=== PATIENT | female | born 1980 | race Caucasian/White ===

== ENCOUNTER → 2016-03-04 | Outpatient (CLI) | payer OTHER ==
--- NOTE | 2016-03-05 03:17 | REP ---
Clinical: Growth evaluation . Comparison: 01/15/2016 . Findings: Examination demonstrates a single live intrauterine in cephalic presentation. motion is identified by technologist. Placenta is noted anteriorly and grade to without evidence for placenta previa or abruption. Amniotic fluid volume is normal. Evidence for nuchal cord. Gestational age by LMP 33 weeks 0 days with JANNA 04/22/2016 . Gestational age by current measurements 35 weeks 5 days. FHR equals 136 beats per minute. BPD 9.2 cm 37 weeks 3-day HC 33.7 cm 38 weeks 4 days AC 31.6 cm 35 weeks 4 days FL 6.6 cm 34 weeks 0 days HL 5.7 cm 33 weeks 0 days HC/AC ratio 1.07 Estimated weight 2727 grams ( greater than 97 percentile based on age by LMP and first ultrasound). Amniotic fluid index equals 12.9 cm (8.3 - 24.5) Impression: Single live advanced gestation demonstrating greater than expected growth. Nuchal cord. No obvious abnormalities are identified. Signed by Josh López MD 03/05/2016 03:09 A
== END ==
LOC: M LRY 13:54
PROVIDERS: ATTEND Advanced Practice Midwife
DX: O26.843 Uterine size-date discrepancy, third trimester (principal)

== ENCOUNTER → 2016-03-29 | Outpatient (REF) | payer OTHER | END | disposition home or self-care (01) | LOC: M LAB REF 13:27 | PROVIDERS: ATTEND Advanced Practice Midwife | DX: Z34.83 Encounter for supervision of other normal pregnancy, third trimester (principal); Z36 Encounter for antenatal screening of mother; Z3A.00 Weeks of gestation of pregnancy not specified ==

== ENCOUNTER → 2016-04-17 | Outpatient (CLI) | payer OTHER ==
[~2016-04-17] VITALS: Ht 160 cm; Wt 82.0 kg
[~2016-04-17] MED LIST: CELE20TA PO; COLA100C PO; IBUP800T23 PO; MOM30SS PO; PERCOCET PO; PRENTAB9 PO
[2016-04-17 19:37] VITALS: BP 149/98
== END | disposition home or self-care (01) ==
LOC: M LDO 19:24
PROVIDERS: ATTEND Obstetrics & Gynecology
DX: O26.853 Spotting complicating pregnancy, third trimester (principal); Z3A.39 39 weeks gestation of pregnancy; O99.343 Other mental disorders complicating pregnancy, third trimester; F33.9 Major depressive disorder, recurrent, unspecified

== ENCOUNTER 2016-04-23 14:39 | Inpatient (IN) | payer OTHER ==
[~2016-04-23] VITALS: Ht 160 cm; Wt 81.0 kg
[2016-04-23 15:00] VITALS: BP 124/72
[2016-04-23] MEDS ORDERED: CELE20TA PO (15:05)
[2016-04-23] MEDS ORDERED: PRENTAB9 PO (15:05)
[2016-04-23 16:41] VITALS: BP 130/61
[2016-04-23 17:42] VITALS: BP 130/83
[2016-04-23] MEDS: miSOPROStol 50 MCG 1/2 TAB (S0191) PO SCH ×2 (18:11→22:10)
[2016-04-23 18:25] LABS: MEAN CORPUSCULAR HEMOGLOBIN 30.4 pg (27.0-33.0); MEAN CORPUSCULAR HGB CONC 34.3 g/dl (32.0-36.5); MEAN CORPUSCULAR VOLUME 88.6 fl (80.0-96.0); RED CELL DISTRIBUTION WIDTH 13.7 % (11.5-14.5); WHITE BLOOD COUNT 10.4 K/mm3 (4.0-10.0)
[2016-04-23] MEDS ORDERED: ACETAMINOPHEN 500 MG TAB PO PRN (19:15)
[2016-04-23 19:55] LABS: ALT/SGPT 14 U/L (12-78); AST/SGOT 16 U/L (15-37); BILIRUBIN,TOTAL 0.2 MG/DL (0.2-1.0); CREATININE FOR GFR 0.81 MG/DL (0.55-1.02); GLOMERULAR FILTRATION RATE > 60.0 (>60); URIC ACID 3.3 MG/DL (2.6-6.0)
[2016-04-24] VITALS (18 sets, daily range): BP systolic 121–157; BP diastolic 71–109
[2016-04-24] MEDS ORDERED: LR 1,000 ML IV SCH (01:39)
[2016-04-24] MEDS ORDERED: OXYTOCIN DRIP 30 UNITS in APPROPRIATE DILUENT 1 EA IV SCH (01:45)
--- NOTE | 2016-04-24 01:57 | HPE ---
DATE OF ADMISSION: 04/23/2016 REASON FOR ADMISSION: Induction of labor for gestational hypertension. HISTORY OF PRESENT ILLNESS: Ms. Baer is a 36-year-old 1, who presents at 40 weeks 1 day estimated gestational age by a 7-week ultrasound for induction of labor. She was seen earlier this week in labor and delivery and was assessed for labor at which time she was noted to have an elevated blood pressure. She presented again today at the office with complaints of a sporadic headache and once again had serial blood pressures which were mildly elevated at 140s over 90s. Decision was made to proceed with an induction of labor secondary to gestational hypertension. Her course had otherwise been unremarkable. She initiated care in her first trimester and has been appropriate throughout. PAST MEDICAL HISTORY: None. PAST SURGICAL HISTORY: She has had a cholecystectomy, colonoscopy. PAST OBSTETRICAL HISTORY: She is 1. MEDICATIONS: Include Celexa and vitamins. ALLERGIES: She has no known drug allergies. PHYSICAL EXAMINATION: VITAL SIGNS: Currently stable. She is afebrile. She has a category 1 heart rate tracing. No contractions on tachometer. GENERAL APPEARANCE: Well appearing, no acute distress. LUNGS: Clear to auscultation bilaterally. CARDIOVASCULAR: Heart is regular rate and rhythm. ABDOMEN: Soft, gravid, nontender. Estimated weight (EFW) 3900 grams. CERVICAL EXAMINATION: She was 3 cm dilated, 90% effaced, -2 station. LABORATORIES: Her blood type is O positive. Antibody screen is negative. Rubella is immune. RPR is nonreactive. Hepatitis surface antigen is negative. HIV is negative. Hepatitis C is nonreactive. She initially tested positive for Chlamydia with a negative test of cure. She had a normal 1-hour Glucola. She is group B Streptococcus (GBS) negative. ASSESSMENT: 1. Ms. Baer is a 36-year-old 1 at 40 weeks 1 day estimated gestational age with gestational hypertension. 2. Reassuring status. PLAN: 1. Admit to labor and delivery. CBC, RPR, type and screen. 2. Patient has been thoroughly counseled in regards to her diagnosis, as well as induction of labor. I discussed medication, as well as procedures performed in labor and delivery. She has also been verbally consented for emergency surgery, blood products and anesthesia. After all her questions were answered, patient desires to proceed with admission. 3. Will initiate her induction with 50 mcg of oral misoprostol.
[2016-04-24] MEDS ORDERED: FENTANYL 2MCG/ML ROPIVACAINE 0.2% NACL 250 ML CADD As Ordered ONE (03:52)
[2016-04-24] MEDS ORDERED: LACTATED RINGER'S 1000 ML IV PRN (03:53)
[2016-04-24] MEDS ORDERED: EPIDURAL/PCA KEYS XX PRN (03:53)
[2016-04-24] MEDS ORDERED: ONDANSETRON 4MG/2ML VIAL (J2405) IV PRN ×3 (03:53→14:00)
[2016-04-24] MEDS ORDERED: EPIDURAL COMMENT XX SCH (03:53)
[2016-04-24] MEDS ORDERED: NALOXONE INJ 0.4 MG/1 ML VIAL (J2310) IV PRN ×3 (03:53→11:13)
[2016-04-24] MEDS ORDERED: FENTANYL/ROPIVACAINE/NACL CADD 250 ML EPIDURAL SCH (03:53)
[2016-04-24] MEDS ORDERED: diphenhydrAMINE INJ 50MG/ML VIAL (J1200) IV PRN (03:53)
[2016-04-24] MEDS ORDERED: REFRIGERATOR IV KEYS XX PRN (03:53)
[2016-04-24] MEDS ORDERED: ePHEDrine SULFATE 25 MG/5 ML(5MG/ML) SYRINGE IV PRN (03:53)
[2016-04-24] MEDS ORDERED: ceFAZolin 2 GM/D5W 50 ML IV BAG (J0690) As Ordered ONE (11:03)
[2016-04-24] MEDS ORDERED: BICITRA 30ML SOLN UDC As Ordered ONE (11:03)
[2016-04-24] MEDS ORDERED: NALBUPHINE HCL 10 MG/ML AMP (J2300) IV PRN (11:13)
[2016-04-24] MEDS ORDERED: METOCLOPRAMIDE INJ 10MG/2ML VIAL (J2765) IV PRN (11:13)
[2016-04-24] MEDS ORDERED: BICITRA 30ML SOLN UDC PO ONE (11:15)
[2016-04-24] MEDS ORDERED: OXYTOCIN INJ 10 UNITS/ML VIAL (J2590) As Ordered ONE ×2 (11:22→12:08)
[2016-04-24] MEDS ORDERED: MORPHINE PRES-FREE INJ 10 MG/10 ML VIAL (J2274) As Ordered ONE (11:22)
[2016-04-24] MEDS ORDERED: PHENYLephrine HCL 500 MCG/5 ML (100MCG/ML) SYRINGE (J2370) As Ordered ONE (11:22)
[2016-04-24] MEDS ORDERED: ONDANSETRON 4MG/2ML VIAL (J2405) As Ordered ONE (11:27)
[2016-04-24] MEDS ORDERED: KETOROLAC 60 MG/2 ML VIAL (J1885) As Ordered ONE (11:27)
[2016-04-24 11:34] LABS: CORD GAS ABE A -19.1; CORD GAS HCO3 A 15.3 MEQ/L; CORD GAS O2 SAT A < 15.0 %; CORD GAS PCO2 A 80.1 mmHg; CORD GAS TCO2 A 17.8 MEQ/L
[2016-04-24 11:39] LABS: CORD GAS ABE V -20.6; CORD GAS HCO3 V 11.2 MEQ/L; CORD GAS PCO2 V 49.6 mmHg; CORD GAS PH V 6.971 UNITS; CORD GAS PO2 V 16.3 mmHg; CORD GAS TCO2 V 12.7 MEQ/L
[2016-04-24] MEDS ORDERED: MEPERIDINE 50 MG/ML 1ML VIAL (J2175) As Ordered ONE (11:42)
[2016-04-24] MEDS ORDERED: METOCLOPRAMIDE INJ 10MG/2ML VIAL (J2765) As Ordered ONE (11:43)
[2016-04-24] MEDS ORDERED: MOM 30ML SUSPENSION UDC PO PRN (13:15)
[2016-04-24] MEDS ORDERED: DOCUSATE SODIUM 100 MG CAP PO PRN (13:15)
[2016-04-24] MEDS ORDERED: RHOGAM 300 MCG (1500 IU) INJ (J2790) IM SCH (13:15)
[2016-04-24] MEDS ORDERED: PERCOCET 5MG/325MG TAB PO PRN (13:15)
[2016-04-24] MEDS ORDERED: MEASLES,MUMPS,RUBELLA VACCINE INJ (MMR-II) (90707) SC SCH (13:15)
[2016-04-24] MEDS ORDERED: OXYTOCIN DRIP 30 UNITS in APPROPRIATE DILUENT 1 EA IV ONE (13:30)
[2016-04-24] MEDS ORDERED: IBUP800T23 PO (13:48)
[2016-04-24] MEDS ORDERED: PERCOCET PO (13:49)
[2016-04-24] MEDS ORDERED: fentaNYL 100 MCG/2 ML INJECTION (J3010) IV PRN (14:00)
[2016-04-24] MEDS: PRENATAL VITAMIN TAB PO SCH (16:12)
[2016-04-24] MEDS: LR 1,000 ML IV SCH ×2 (16:13→21:12)
[2016-04-24] MEDS: KETOROLAC 30 MG/ML VIAL (J1885) IV SCH (17:43)
[2016-04-25] MEDS: KETOROLAC 30 MG/ML VIAL (J1885) IV SCH ×3 (00:11→13:13)
[2016-04-25 01:59] VITALS: BP 132/87
[2016-04-25 06:07] LABS: MEAN CORPUSCULAR HEMOGLOBIN 30.6 pg (27.0-33.0); MEAN CORPUSCULAR HGB CONC 32.3 g/dl (32.0-36.5); RED CELL DISTRIBUTION WIDTH 14.2 % (11.5-14.5); WHITE BLOOD COUNT 23.3 K/mm3 (4.0-10.0)
[2016-04-25 06:08] LABS: MEAN CORPUSCULAR VOLUME 94.9 fl (80.0-96.0)
[2016-04-25 06:10] VITALS: BP 147/96
--- NOTE | 2016-04-25 06:33 | RO ---
DATE OF PROCEDURE: 04/24/2016 PREOPERATIVE DIAGNOSES: 1. Nonreassuring heart tracing. 2. Gestational hypertension. POSTOPERATIVE DIAGNOSES: 1. Nonreassuring heart tracing. 2. Gestational hypertension. PROCEDURE PERFORMED: Primary lower transverse section. SURGEON: Coral Jenkins MD ASSISTANTS: True Fairbanks MD ANESTHESIA: Spinal. ESTIMATED BLOOD LOSS: 450 mL. URINE OUTPUT: 75 mL. INTRAVENOUS FLUIDS: 1300 mL of lactated Ringer solution. PREOPERATIVE ANTIBIOTICS: 2 grams of Ancef. SPECIMENS: Cord blood, cord gases and placenta. Cord gas is 6.90, 6.97, with base excess of -19, -20, respectively. INDICATION FOR OPERATION: This patient is a 36-year-old, 1, who presented at 40 weeks and 2 days estimated gestational age for induction of labor secondary gestational hypertension. She initially presented to the office for routine obstetrical (OB) appointment with elevated blood pressures. She reported a mild headache, but otherwise had been asymptomatic and she was sent labor and delivery for labor induction. Her labor progressed unremarkable to the second stage. She began to push and shortly after started to experience repetitive variable decelerations. At which time, I presented to the room where I noticed tachycardia with the heart rate in the 180s with severe variables. Shortly after presenting to the patient's room, I noticed maternal tachycardia with a heart rate in the 160s. At which time, pulse oximetry was placed on the patient and it was observed that the maternal heart rate was being traced instead of . The heart rate was in the 130s with loss of variability and severe variable, decision was made to emergently proceed for a section delivery. DESCRIPTION OF OPERATION: After informed consent was obtained and written consent was reviewed, the patient was brought to the operating room where spinal anesthesia was placed. She was placed in supine position with a left lateral tilt, was emergently prepped and draped. Anesthesia was then tested, deemed to be adequate. A Pfannenstiel skin incision was then made and carried down to the underlying rectus fascia. The fascia was scored and this incision was extended bilaterally. The rectus muscles were in the midline. The peritoneum was then entered bluntly. The vesicouterine peritoneum was tented and excised to create a bladder flap. The bladder blade was placed to retract back the bladder. A curvilinear incision was then made in the lower uterine segment. The head was brought to the level of the incision atraumatically and was delivered, followed by the delivery of shoulders and corpus. Cord was clamped times two and was cut. Infant was taken over to the warmer with Dr. Herrera, neonatology awaited. Cord blood and gases obtained. The placenta was then delivered grossly intact. The uterus was then exteriorized and cleared of all clots and debris. The uterine incision was then closed using two layers of #0 Vicryl, first layer in a running locking fashion, followed by a second layer for imbrication in a running nonlocking fashion. Additional [id number] sutures was placed for hemostasis. The abdomen was then suctioned. The uterine incision inspected and noted to be hemostatic. Uterus was returned to the patient's abdomen, once again inspected and noted to be hemostatic. The anterior peritoneum was then reapproximated with #3-0 Vicryl. The rectus muscles were reapproximated with #3-0 Vicryl. The fascia was then closed using #0 Vicryl in a running nonlocking fashion. The subcutaneous tissue was then irrigated and suctioned. The subcutaneous tissue was reapproximated with #0 Vicryl. Several subdermal stitches were placed with #3-0 Vicryl and the skin was closed with #4-0 Monocryl in a subcuticular fashion. The incision was then cleaned and dry. Mastisol was applied above and below the incision. Steri-Strips were applied over the incision. The incision was then dressed. The patient was then taken to recovery in stable condition. Counts were correct and the couple has decided to name their , Gerald. CHARLEY
[2016-04-25] MEDS: CitaloPRAM (CeleXA) 20 MG TAB PO SCH (08:40)
[2016-04-25] MEDS: PRENATAL VITAMIN TAB PO SCH (08:40)
[2016-04-25] MEDS: PERCOCET 5MG/325MG TAB PO PRN ×3 (08:42→23:38)
[2016-04-25 10:05] VITALS: BP 137/91
[2016-04-25] MEDS: IBUPROFEN 800 MG TAB PO SCH ×2 (13:31→21:14)
[2016-04-25 15:00] VITALS: BP 137/83
[2016-04-25 18:11] VITALS: BP 144/87
[2016-04-25] MEDS ORDERED: IBUPROFEN 800 MG TAB PO SCH (20:00)
[2016-04-25 22:12] VITALS: BP 145/88
[2016-04-26 02:11] VITALS: BP 120/69
[2016-04-26] MEDS: IBUPROFEN 800 MG TAB PO SCH (05:16)
[2016-04-26 05:55] VITALS: BP 120/80
[2016-04-26] MEDS ORDERED: COLA100C PO (07:46)
[2016-04-26] MEDS ORDERED: MOM30SS PO (07:55)
[2016-04-26] MEDS: CitaloPRAM (CeleXA) 20 MG TAB PO SCH (08:10)
[2016-04-26] MEDS: PRENATAL VITAMIN TAB PO SCH (08:10)
--- NOTE | 2016-04-27 13:13 | DSES ---
DATE OF ADMISSION: 04/23/2016 DATE OF DISCHARGE: 04/26/2016 DISCHARGE DIAGNOSES: 1. Gestational hypertension. 2. Emergency primary section for non-reassuring heart tracing. PROCEDURES PERFORMED WHILE IN THE HOSPITAL: 1. Epidural. 2. Spinal anesthesia. 3. Emergency primary section. DISCHARGE CONDITION: Stable. HISTORY AND HOSPITAL COURSE: Mrs. Baer is a 36-year-old 1, initially presented at 40 weeks 1 day for routine OB appointment and was noted to have elevated blood pressures. She continued to be evaluated with repetitive range blood pressures and was sent to labor and delivery for induction of labor. Her labor progressed to the second stage and during the second stage began to have repetitive decelerations, loss of variability and underwent an emergency section for non-reassuring heart tracing. section was uncomplicated. It was productive of a live born male infant. Estimated blood loss was 150 mL. Mrs. Baer did well postoperatively. By postoperative day #2 had met all discharge criteria and was discharged home in stable condition. PHYSICAL EXAM ON DAY OF DISCHARGE: Vital signs stable. She was afebrile. General appearance: Well appearing, no acute distress. Abdomen soft, appropriately tender. Incision was clean, dry and intact, well approximated, not erythremic. Extremities: Negative for calf tenderness. DISCHARGE MEDICATIONS: - ibuprofen - Percocet DISCHARGE INSTRUCTIONS: 1. She will be instructed to remain on pelvic rest for 6 weeks. 2. Report severe pain, heavy vaginal bleeding, fever, persistent headache, incisional issues. 3. Followup in 1 week for blood pressure check and incision check.
== END 2016-04-26 09:35 | disposition home or self-care (01) | DRG 766 ==
LOC: M LDI 14:39 → M OBS 04-24 16:07
PROVIDERS: ADMIT Obstetrics & Gynecology; ATTEND Obstetrics & Gynecology
PROC: 3E0P7GC Introduction of Other Therapeutic Substance into Female Reproductive, Via Natural or Artificial Opening (ICD-10-PCS; 2016-04-23)
PROC: 10D00Z1 Extraction of Products of Conception, Low, Open Approach (ICD-10-PCS; principal; 2016-04-24 11:18)
DX: O13.4 Gestational [pregnancy-induced] hypertension without significant proteinuria, complicating childbirth (principal); Z3A.40 40 weeks gestation of pregnancy; O48.0 Post-term pregnancy; O76 Abnormality in fetal heart rate and rhythm complicating labor and delivery; Z37.0 Single live birth

== ENCOUNTER → 2017-03-31 | Outpatient (REF) | payer OTHER | LOC: M SFHCLERA 16:35 | DX: R35.0 Frequency of micturition (principal) | CPT/HCPCS: 87086 ==

== ENCOUNTER → 2017-09-07 | Outpatient (CLI) | payer OTHER ==
[2017-09-07 11:26] LABS: BASO # 0.1 10^3/uL (0.0-0.2); BASO % 0.8 % (0.0-1.0); EOS # 0.3 10^3/uL (0.0-0.50); EOS % 4.5 % (0.0-3.0); HEMATOCRIT 41.9 % (36.0-47.0); HEMOGLOBIN 13.6 g/dl (12.0-15.5); IMMATURE GRANULOCYTE % 0.5 % (0-3.0); LYMPH # 2.1 10^3/uL (1.5-4.5); LYMPH % 31.3 % (24.0-44.0); MEAN CORPUSCULAR HEMOGLOBIN 29.5 pg (27.0-33.0); MEAN CORPUSCULAR HGB CONC 32.5 g/dl (32.0-36.5); MEAN CORPUSCULAR VOLUME 90.9 fl (80.0-96.0); MONO # 0.5 10^3/uL (0.0-0.8); MONO % 7.4 % (0.0-5.0); NEUTROPHILS # 3.7 10^3/uL (1.8-7.7); NEUTROPHILS % 55.5 % (36.0-66.0); PLATELET COUNT, AUTOMATED 264 10^3/uL (150-450); RED BLOOD COUNT 4.61 10^6/uL (4.00-5.40); RED CELL DISTRIBUTION WIDTH 13.4 % (11.5-14.5); WHITE BLOOD COUNT 6.6 10^3/uL (4.0-10.0)
[2017-09-07 11:56] LABS: ALKALINE PHOSPHATASE 98 U/L (45-117); ALT/SGPT 33 U/L (12-78); ANION GAP 7 MEQ/L (8-16); AST/SGOT 18 U/L (7-37); BILIRUBIN,TOTAL 0.3 MG/DL (0.2-1.0); BLOOD UREA NITROGEN 12 MG/DL (7-18); CALCIUM LEVEL 8.8 MG/DL (8.5-10.1); CARBON DIOXIDE LEVEL 26 MEQ/L (21-32); CHLORIDE LEVEL 109 MEQ/L (98-107); CHOLESTEROL LEVEL 222 MG/DL (<200); CREATININE FOR GFR 0.78 MG/DL (0.55-1.30); GLOMERULAR FILTRATION RATE > 60.0 (>60); GLUCOSE, FASTING 79 MG/DL (70-100); POTASSIUM SERUM 4.4 MEQ/L (3.5-5.1); SODIUM LEVEL 142 MEQ/L (136-145); TRIGLYCERIDES LEVEL 100 MG/DL (<150)
[2017-09-07 11:57] LABS: ALBUMIN 3.3 GM/DL (3.2-5.2); ALBUMIN/GLOBULIN RATIO 0.92 (1.00-1.93); FREE T4 0.93 NG/DL (0.76-1.46); HDL CHOLESTEROL 50 MG/DL (>40); NON-HDL-C 172 MG/DL; TOTAL PROTEIN 6.9 GM/DL (6.4-8.2)
== END ==
LOC: M LRY 08:58
DX: E78.5 Hyperlipidemia, unspecified (principal); G47.33 Obstructive sleep apnea (adult) (pediatric)
CPT/HCPCS: 84443

== ENCOUNTER → 2017-09-16 | Outpatient (REF) | payer OTHER ==
[2017-09-20 14:14] LABS: HPV HYBRID CAPTURE II Negative (Negative)
== END ==
LOC: M LAB REF 17:15
DX: Z01.419 Encounter for gynecological examination (general) (routine) without abnormal findings (principal); Z11.51 Encounter for screening for human papillomavirus (HPV)